=== PATIENT | female | born 1990 | race American Indian/Alaskan Native ===

== ENCOUNTER 2020-12-31 15:01 | Outpatient (CLI) | payer OTHER ==
[2020-12-31] MEDS ORDERED: PRENATAL TABLE1 EAC1 PO (15:30)
== END 2021-01-01 11:29 | disposition home or self-care (01) ==
LOC: OBS/DEL 15:01
PROVIDERS: ATTEND Obstetrics & Gynecology
DX: O26.892 Other specified pregnancy related conditions, second trimester (principal); R10.2 Pelvic and perineal pain; O26.842 Uterine size-date discrepancy, second trimester; O60.02 Preterm labor without delivery, second trimester; Z3A.21 21 weeks gestation of pregnancy